=== PATIENT | female | born 2000 | race Asian ===

== ENCOUNTER 2020-05-10 15:09 | Emergency (ER) | payer BC, OTHER ==
[~2020-05-10] VITALS: Ht 170.2 cm; Wt 65.8 kg
--- NOTE | 2020-05-10 15:15 | NUR ---
Patient ambulated to bed 4. RN evaluating patient at bedside.
[2020-05-10 15:19] VITALS: BP 132/73
[2020-05-10] MEDS ORDERED: KETOROLAC 60 MG/2 ML VIAL IM ONE (15:25)
[2020-05-10 15:26] VITALS: BP 132/73
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
--- NOTE | 2020-05-10 15:38 | NUR ---
Dr. uY is evaluating the patient at bedside.
--- NOTE | 2020-05-10 15:49 | NUR ---
Patient discharged with v/s stable. Written and verbal after care instructions given and explained. Patient alert, oriented and verbalized understanding of instructions. Ambulatory with steady gait. All questions addressed prior to discharge. ID band removed. Patient advised to follow up with PMD. Rx of NORCO, MOTRIN given. Patient educated on indication of medication including possible reaction and side effects. Opportunity to ask questions provided and answered.
== END 2020-05-10 15:49 | disposition home or self-care (01) ==
LOC: MED 15:09
DX: S13.4XXA Sprain of ligaments of cervical spine, initial encounter (principal); F12.90 Cannabis use, unspecified, uncomplicated; J45.909 Unspecified asthma, uncomplicated; V29.3XXA Motorcycle rider (driver) (passenger) injured in unspecified nontraffic accident, initial encounter; Y93.89 Activity, other specified; Y92.89 Other specified places as the place of occurrence of the external cause; Y99.8 Other external cause status
CPT/HCPCS: 81025; 99283; J1885